=== PATIENT | male | born 1960 | race Caucasian/White ===

== ENCOUNTER 2017-09-11 09:59 | Outpatient (RCR) | payer OTHER | END 2017-09-13 | LOC: PT 09:59 | PROVIDERS: ATTEND Psychiatry & Neurology Neurology | DX: I63.9 Cerebral infarction, unspecified (principal); M25.641 Stiffness of right hand, not elsewhere classified; M62.81 Muscle weakness (generalized); R27.9 Unspecified lack of coordination; R26.2 Difficulty in walking, not elsewhere classified; R53.1 Weakness | CPT/HCPCS: 92523; 97139 ==

== ENCOUNTER 2017-09-25 09:00 | Outpatient (RCR) | payer OTHER | END 2017-10-14 | LOC: PT 09:00 | PROVIDERS: ATTEND Psychiatry & Neurology Neurology | DX: I63.9 Cerebral infarction, unspecified (principal); R53.1 Weakness; M25.641 Stiffness of right hand, not elsewhere classified; R27.9 Unspecified lack of coordination | CPT/HCPCS: 97139 ==

== ENCOUNTER 2020-11-17 10:17 | Emergency (ER) | payer OTHER ==
[~2020-11-17] VITALS: Ht 177.8 cm; Wt 104.3 kg
== END 2020-11-17 10:57 | disposition home or self-care (01) ==
LOC: ER 10:23
DX: Z46.6 Encounter for fitting and adjustment of urinary device (principal); K21.9 Gastro-esophageal reflux disease without esophagitis; M10.9 Gout, unspecified
CPT/HCPCS: 99282